=== PATIENT | male | born 1995 | race Caucasian/White ===

== ENCOUNTER 2017-01-23 15:06 | Observation (INO) ==
--- NOTE | 2017-01-23 15:13 | Emergency Department Note ---
Disposition Clinical Impression: Seizure, Alcohol withdrawal Disposition: Admitted As Inpatient Condition: Good General Adult HPI - General Chief complaint: ED General Medical Stated complaint: UNRESPONSIVE Time Seen by Provider: 01/23/17 15:10 - Related Data Home Medications Medication Instructions Recorded Confirmed Ibuprofen [Motrin] 200 mg PO Q4HR PRN 01/23/17 01/23/17 Allergies Allergy/AdvReac Type Severity Reaction Status Date / Time Penicillins [PCN] Allergy Difficulty Verified 01/23/17 16:42 Breathing Course Vital Signs Temperature 96.1 F L 01/23/17 15:10 Pulse Rate 100 01/23/17 15:10 Respiratory Rate 22 01/23/17 15:10 Blood Pressure 136/82 01/23/17 15:10 O2 Sat by Pulse Oximetry 100 01/23/17 15:10 Temperature 96.1 F L 01/23/17 15:10 Pulse Rate 87 01/23/17 17:38 Respiratory Rate 18 01/23/17 17:46 Blood Pressure 126/41 01/23/17 17:46 O2 Sat by Pulse Oximetry 01/23/17 17:38 Oxygen Delivery Oxygen Delivery Room Air Medical Decision Making - Lab Data Result diagrams: 01/23/17 15:37 01/23/17 15:37 Lab Results 01/23/17 01/23/17 01/23/17 Range/Units 15:37 15:37 15:37 WBC 10.0 (4.3-11.1) K/mcL RBC 5.20 (4.19-5.50) M/mcL Hgb 16.6 (12.9-16.9) g/dL Hct 46.9 (37.5-50.1) % MCV 90.2 (83.0-100.0) fL MCH 31.9 (28.0-33.3) pg MCHC 35.4 (31.6-35.5) g/dL RDW 11.9 (11.5-14.5) % Plt Count 185 (140-400) K/mcL MPV 9.9 (9.4-12.4) fL Immature Gran % 0.3 (0-4) % Seg Neutrophils % 74.6 % Lymphocytes % 18.7 % Monocytes % 5.1 % Eosinophils % 0.7 % Basophils % 0.6 % Neutrophils # 7.4 (1.6-8.9) K/mcL Lymphocytes # 1.9 (0.6-4.6) K/mcL Monocytes # 0.5 (0.0-1.3) K/mcL Eosinophils # 0.1 (0.0-0.6) K/mcL Basophils # 0.1 (0.0-0.2) K/mcL Sodium 138 (136-145) mEq/L Potassium 3.1 L (3.5-4.5) mEq/L Chloride 106 (98-109) mEq/L Carbon Dioxide 24 (19-29) mEq/L BUN 7 L (8-26) mg/dL Creatinine 0.93 (0.72-1.25) mg/dL Est GFR ( Amer) > 60 (> 60) Est GFR (Non-Af Amer) > 60 (> 60) BUN/Creatinine Ratio 8 (6-26) Glucose 97 (70-99) mg/dL Calculated Osmolality 284 (280-300) Calcium 9.8 (8.6-10.8) mg/dL Magnesium 2.1 (1.6-2.6) mg/dL Total Bilirubin 0.3 (0.2-1.2) mg/dL AST 27 (5-34) Units/L ALT 21 (0-55) Units/L Alkaline Phosphatase 116 (38-126) Units/L Creatine Kinase 113 (30-200) Units/L Serum Total Protein 8.3 (6.0-8.3) g/dL Albumin 4.7 (3.5-5.0) g/dL Globulin 3.6 H (2.4-3.5) g/dL Albumin/Globulin Ratio 1.3 (1.1-2.2) Urine Color (Yellow) Urine Clarity (Clear) Urine pH (5.0-8.0) pH Units Ur Specific [place] (1.010-1.025) Urine Protein (Neg-Trace) mg/dL Urine Glucose (UA) (Normal) mg/dL Urine Ketones (Negative) mg/dL Urine Blood (Negative) Urine Nitrite (Negative) Urine Bilirubin (Negative) Urine Urobilinogen (Normal) mg/dL Ur Leukocyte Esterase (Negative) Salicylates < 5.0 L (15-30) mg/dL Urine Opiates Screen (Zjuaiw=747) ng/mL Acetaminophen < 1.0 L (10-30) mcg/mL Ur Barbiturates Screen (Ylhyul=285) ng/mL Ur Phencyclidine Scrn (Cutoff=25) ng/mL Ur Amphetamines Screen (Fsnnje=5872) ng/mL U Benzodiazepines Scrn (Wsnizd=764) ng/mL Urine Cocaine Screen (Cutoff= 300) ng/mL U Marijuana (THC) Screen (Cutoff = 50) ng/mL Ethyl Alcohol < 10 (0-10) mg/dL 01/23/17 01/23/17 Range/Units 15:45 15:45 WBC (4.3-11.1) K/mcL RBC (4.19-5.50) M/mcL Hgb (12.9-16.9) g/dL Hct (37.5-50.1) % MCV (83.0-100.0) fL MCH (28.0-33.3) pg MCHC (31.6-35.5) g/dL RDW (11.5-14.5) % Plt Count (140-400) K/mcL MPV (9.4-12.4) fL Immature Gran % (0-4) % Seg Neutrophils % % Lymphocytes % % Monocytes % % Eosinophils % % Basophils % % Neutrophils # (1.6-8.9) K/mcL Lymphocytes # (0.6-4.6) K/mcL Monocytes # (0.0-1.3) K/mcL Eosinophils # (0.0-0.6) K/mcL Basophils # (0.0-0.2) K/mcL Sodium (136-145) mEq/L Potassium (3.5-4.5) mEq/L Chloride (98-109) mEq/L Carbon Dioxide (19-29) mEq/L BUN (8-26) mg/dL Creatinine (0.72-1.25) mg/dL Est GFR ( Amer) (> 60) Est GFR (Non-Af Amer) (> 60) BUN/Creatinine Ratio (6-26) Glucose (70-99) mg/dL Calculated Osmolality (280-300) Calcium (8.6-10.8) mg/dL Magnesium (1.6-2.6) mg/dL Total Bilirubin (0.2-1.2) mg/dL AST (5-34) Units/L ALT (0-55) Units/L Alkaline Phosphatase (38-126) Units/L Creatine Kinase (30-200) Units/L Serum Total Protein (6.0-8.3) g/dL Albumin (3.5-5.0) g/dL Globulin (2.4-3.5) g/dL Albumin/Globulin Ratio (1.1-2.2) Urine Color Yellow (Yellow) Urine Clarity Clear (Clear) Urine pH 8.0 (5.0-8.0) pH Units Ur Specific [place] 1.011 (1.010-1.025) Urine Protein Negative (Neg-Trace) mg/dL Urine Glucose (UA) Normal (Normal) mg/dL Urine Ketones Negative (Negative) mg/dL Urine Blood Negative (Negative) Urine Nitrite Negative (Negative) Urine Bilirubin Negative (Negative) Urine Urobilinogen Normal (Normal) mg/dL Ur Leukocyte Esterase Negative (Negative) Salicylates (15-30) mg/dL Urine Opiates Screen Negative (Hlsciq=872) ng/mL Acetaminophen (10-30) mcg/mL Ur Barbiturates Screen Negative (Ltsvnq=560) ng/mL Ur Phencyclidine Scrn Negative (Cutoff=25) ng/mL Ur Amphetamines Screen Negative (Nmvjkh=6884) ng/mL U Benzodiazepines Scrn Negative (Tvjsey=118) ng/mL Urine Cocaine Screen Negative (Cutoff= 300) ng/mL U Marijuana (THC) Screen Positive H (Cutoff = 50) ng/mL Ethyl Alcohol (0-10) mg/dL Attestation Statement - Attestation Attestation: I examined this patient and my medical decision-making was reviewed with the Resident Physician. I agree with the documented findings, disposition and treatment plan as described except to the extent set forth below. Face to face time provided Patient arrives by EMS from home. He presents with altered mentation. The patient is alert and does answer questions appropriately but slowly and deliberately. He has no focal deficits. Accu-Chek by EMS was appropriate
--- NOTE | 2017-01-23 15:42 | Emergency Department Note ---
Disposition Clinical Impression: Seizure Alcohol withdrawal Qualifiers: Complication of substance-induced condition: with unspecified complication Qualified Code(s): F10.239 - Alcohol dependence with withdrawal, unspecified Disposition: Admitted As Inpatient Condition: Good Time of Disposition: 17:22 General Adult HPI - General Chief complaint: ED General Medical Stated complaint: UNRESPONSIVE Time Seen by Provider: 01/23/17 15:10 Source: patient, EMS Limitations: no limitations Nursing Notes Reviewed: Yes Vital Signs Reviewed: Yes - History of Present Illness HPI Narrative: This is a 21-year-old male with a past medical history of ADHD. He reports to the emergency department via EMS after being found unresponsive. EMS performed a sternal rub and awakened him. At initial presentation, he was altered, and was not answering questions properly. Speaking to his girlfriend, she stated that he had possibly had a seizure. She says that he was having some convulsions as well as contractions. Pain Scale: 0 - Related Data Home Medications Medication Instructions Recorded Confirmed Ibuprofen [Motrin] 200 mg PO Q4HR PRN 01/23/17 01/23/17 Allergies Allergy/AdvReac Type Severity Reaction Status Date / Time Penicillins [PCN] Allergy Difficulty Verified 01/23/17 16:42 Breathing Limitations: ROS unobtainable due to patients medical condition (Altered mental status) Past Medical History - Past Medical History Medical history: Reports: seizures Psychiatric history: Reports: anxiety, depression - Social History Smoking Status: Current every day smoker Smokeless Tobacco Status: No Alcohol use: Reports: rarely Drug use: Reports: marijuana Physical Exam This is a 21-year-old male who is in no apparent distress, but does seem confused and altered - General Limitations: no limitations General appearance: alert - Eye Eye exam: Present: EOMI, other (Pupils dilated but equal and reactive to light) . Absent: scleral icterus, conjunctival injection - ENT ENT exam: TM's normal bilaterally - Neck Neck exam: Present: full ROM, trachea midline - Chest Chest inspection: Present: normal inspection, symmetric chest wall rise - Respiratory Respiratory exam: Present: normal lung sounds bilaterally. Absent: respiratory distress, wheezes, stridor - Cardiovascular Cardiovascular exam: Present: regular rate, normal rhythm, normal heart sounds - Abdominal Exam Abdominal exam: Present: soft, Non-Tender. Absent: distention, guarding, rebound, rigidity - Extremities Exam Extremities exam: Present: normal capillary refill. Absent: tenderness, joint swelling, calf tenderness - Back Exam Back exam: Present: normal inspection, full ROM. Absent: tenderness - Psychiatric Psychiatric exam: Absent: agitated, anxious - Skin Skin exam: Present: warm, dry, intact Course Course Narrative: This is a 21-year-old male who presents to the emergency department via EMS after being found unresponsive. His girlfriend states that she thought he had seizure-like activity at home. Upon presentation, he appeared altered, he responded appropriately to questions, but he was very sluggish in answering them. Our initial major concerns were intracranial hemorrhage, seizure, drug overdose , acute infection. We performed a CT of the head, obtain a CBC, CMP, APAP, salicylate level, alcohol level, magnesium level. - Reevaluation(s) Reevaluation #1: He appears awake and more alert at the moment. His unresponsiveness appears to be more like a postictal phase. He states that up until a week ago he was drinking over a 30 pack of natural light per day. He also states he was doing 4 -8 shots of any type of liquor he can get his hands on. After after quitting drinking and 30 pack per day, he continued taking the same amount of shots until [address] came back negative as well as his chest x-ray. His EKG was mostly unchanged from his previous one. His urine drug screen only came back positive for THC. His potassium was 3.1, and I am correcting it with 40 mEq of oral potassium. At this time, I am most concerned about this patient having an acute alcohol withdrawal. I think it is in this patient's best interest to stay for observation. I will consult neurology as well as the hospitalist service to admit him. Time: 16:15 Reevaluation #2: I spoke to the neurologist Dr. Almonte on the phone, and he agrees to perform a MRI and EEG on him tomorrow if he is admitted. Time: 17:00 Reevaluation #3: I spoke on the phone with the hospitalist and he agreed to admit him. The patient seems more agitated at this time. I will give him 2 mg of Valium. Time: 17:35 Vital Signs Temperature 96.1 F L 01/23/17 15:10 Pulse Rate 100 01/23/17 15:10 Respiratory Rate 22 01/23/17 15:10 Blood Pressure 136/82 01/23/17 15:10 O2 Sat by Pulse Oximetry 100 01/23/17 15:10 Temperature 96.1 F L 01/23/17 15:10 Pulse Rate 79 01/23/17 16:35 Respiratory Rate 16 01/23/17 16:35 Blood Pressure 114/58 01/23/17 16:35 O2 Sat by Pulse Oximetry 97 01/23/17 16:35 Oxygen Delivery Oxygen Delivery Room Air Medical Decision Making - MDM Narrative Medical decision making narrative: Head CT 01/23/17 15:12 IMPRESSION: Normal CT of the brain. D/ / Eder Garcia MD / Eder Garcia MD Interpreting Provider: Eder Garcia MD Chest X-Ray 01/23/17 15:15 IMPRESSION: 1. No acute radiographic finding in the chest. D/ / Jimbo Bazan MD / Jimbo Bazan MD Interpreting Provider: Jimbo Bazan MD Vital Signs Temperature 96.1 F L 01/23/17 15:10 Pulse Rate 100 01/23/17 15:10 Respiratory Rate 22 01/23/17 15:10 Blood Pressure 136/82 01/23/17 15:10 O2 Sat by Pulse Oximetry 100 01/23/17 15:10 Temperature 96.1 F L 01/23/17 15:10 Pulse Rate 79 01/23/17 16:35 Respiratory Rate 16 01/23/17 16:35 Blood Pressure 114/58 01/23/17 16:35 O2 Sat by Pulse Oximetry 97 01/23/17 16:35 Oxygen Delivery Oxygen Delivery Room Air - Medical Records Medical records reviewed: Yes I reviewed the patient's medical records. - Lab Data Lab results reviewed: Yes I reviewed the patient's lab results. Result diagrams: 01/23/17 15:37 01/23/17 15:37 Lab Results 01/23/17 01/23/17 01/23/17 Range/Units 15:37 15:37 15:37 WBC 10.0 (4.3-11.1) K/mcL RBC 5.20 (4.19-5.50) M/mcL Hgb 16.6 (12.9-16.9) g/dL Hct 46.9 (37.5-50.1) % MCV 90.2 (83.0-100.0) fL MCH 31.9 (28.0-33.3) pg MCHC 35.4 (31.6-35.5) g/dL RDW 11.9 (11.5-14.5) % Plt Count 185 (140-400) K/mcL MPV 9.9 (9.4-12.4) fL Immature Gran % 0.3 (0-4) % Seg Neutrophils % 74.6 % Lymphocytes % 18.7 % Monocytes % 5.1 % Eosinophils % 0.7 % Basophils % 0.6 % Neutrophils # 7.4 (1.6-8.9) K/mcL Lymphocytes # 1.9 (0.6-4.6) K/mcL Monocytes # 0.5 (0.0-1.3) K/mcL Eosinophils # 0.1 (0.0-0.6) K/mcL Basophils # 0.1 (0.0-0.2) K/mcL Sodium 138 (136-145) mEq/L Potassium 3.1 L (3.5-4.5) mEq/L Chloride 106 (98-109) mEq/L Carbon Dioxide 24 (19-29) mEq/L BUN 7 L (8-26) mg/dL Creatinine 0.93 (0.72-1.25) mg/dL Est GFR ( Amer) > 60 (> 60) Est GFR (Non-Af Amer) > 60 (> 60) BUN/Creatinine Ratio 8 (6-26) Glucose 97 (70-99) mg/dL Calculated Osmolality 284 (280-300) Calcium 9.8 (8.6-10.8) mg/dL Magnesium 2.1 (1.6-2.6) mg/dL Total Bilirubin 0.3 (0.2-1.2) mg/dL AST 27 (5-34) Units/L ALT 21 (0-55) Units/L Alkaline Phosphatase 116 (38-126) Units/L Creatine Kinase 113 (30-200) Units/L Serum Total Protein 8.3 (6.0-8.3) g/dL Albumin 4.7 (3.5-5.0) g/dL Globulin 3.6 H (2.4-3.5) g/dL Albumin/Globulin Ratio 1.3 (1.1-2.2) Urine Color (Yellow) Urine Clarity (Clear) Urine pH (5.0-8.0) pH Units Ur Specific [place] (1.010-1.025) Urine Protein (Neg-Trace) mg/dL Urine Glucose (UA) (Normal) mg/dL Urine Ketones (Negative) mg/dL Urine Blood (Negative) Urine Nitrite (Negative) Urine Bilirubin (Negative) Urine Urobilinogen (Normal) mg/dL Ur Leukocyte Esterase (Negative) Salicylates < 5.0 L (15-30) mg/dL Urine Opiates Screen (Dcugel=943) ng/mL Acetaminophen < 1.0 L (10-30) mcg/mL Ur Barbiturates Screen (Ipybli=416) ng/mL Ur Phencyclidine Scrn (Cutoff=25) ng/mL Ur Amphetamines Screen (Pwydch=2668) ng/mL U Benzodiazepines Scrn (Fckeai=881) ng/mL Urine Cocaine Screen (Cutoff= 300) ng/mL U Marijuana (THC) Screen (Cutoff = 50) ng/mL Ethyl Alcohol < 10 (0-10) mg/dL 01/23/17 01/23/17 Range/Units 15:45 15:45 WBC (4.3-11.1) K/mcL RBC (4.19-5.50) M/mcL Hgb (12.9-16.9) g/dL Hct (37.5-50.1) % MCV (83.0-100.0) fL MCH (28.0-33.3) pg MCHC (31.6-35.5) g/dL RDW (11.5-14.5) % Plt Count (140-400) K/mcL MPV (9.4-12.4) fL Immature Gran % (0-4) % Seg Neutrophils % % Lymphocytes % % Monocytes % % Eosinophils % % Basophils % % Neutrophils # (1.6-8.9) K/mcL Lymphocytes # (0.6-4.6) K/mcL Monocytes # (0.0-1.3) K/mcL Eosinophils # (0.0-0.6) K/mcL Basophils # (0.0-0.2) K/mcL Sodium (136-145) mEq/L Potassium (3.5-4.5) mEq/L Chloride (98-109) mEq/L Carbon Dioxide (19-29) mEq/L BUN (8-26) mg/dL Creatinine (0.72-1.25) mg/dL Est GFR ( Amer) (> 60) Est GFR (Non-Af Amer) (> 60) BUN/Creatinine Ratio (6-26) Glucose (70-99) mg/dL Calculated Osmolality (280-300) Calcium (8.6-10.8) mg/dL Magnesium (1.6-2.6) mg/dL Total Bilirubin (0.2-1.2) mg/dL AST (5-34) Units/L ALT (0-55) Units/L Alkaline Phosphatase (38-126) Units/L Creatine Kinase (30-200) Units/L Serum Total Protein (6.0-8.3) g/dL Albumin (3.5-5.0) g/dL Globulin (2.4-3.5) g/dL Albumin/Globulin Ratio (1.1-2.2) Urine Color Yellow (Yellow) Urine Clarity Clear (Clear) Urine pH 8.0 (5.0-8.0) pH Units Ur Specific [place] 1.011 (1.010-1.025) Urine Protein Negative (Neg-Trace) mg/dL Urine Glucose (UA) Normal (Normal) mg/dL Urine Ketones Negative (Negative) mg/dL Urine Blood Negative (Negative) Urine Nitrite Negative (Negative) Urine Bilirubin Negative (Negative) Urine Urobilinogen Normal (Normal) mg/dL Ur Leukocyte Esterase Negative (Negative) Salicylates (15-30) mg/dL Urine Opiates Screen Negative (Xoqmrc=330) ng/mL Acetaminophen (10-30) mcg/mL Ur Barbiturates Screen Negative (Fpweod=773) ng/mL Ur Phencyclidine Scrn Negative (Cutoff=25) ng/mL Ur Amphetamines Screen Negative (Btovof=0575) ng/mL U Benzodiazepines Scrn Negative (Abcrnj=247) ng/mL Urine Cocaine Screen Negative (Cutoff= 300) ng/mL U Marijuana (THC) Screen Positive H (Cutoff = 50) ng/mL Ethyl Alcohol (0-10) mg/dL - Radiology Data Radiology results reviewed: Yes I reviewed the patient's radiology results. - EKG Data EKG #1 EKG attestation: Yes I reviewed and interpreted this EKG. EKG results narrative: 01/23/2017 15:08 Ventricular rate 80 bpm, TX interval 138 ms, QRS jain 94 6, QT 366, QTC 411 ms, normal axis. Sinus rhythm with a ventricular rate of 80 beats per minute. RSR prime in V2. This is new from his previous EKG from 04/18/2014
[2017-01-23 15:44] LABS: Basophils # 0.1 K/mcL (0.0-0.2); Basophils % 0.6 %; Eosinophils # 0.1 K/mcL (0.0-0.6); Eosinophils % 0.7 %; Hematocrit 46.9 % (37.5-50.1); Hemoglobin 16.6 g/dL (12.9-16.9); Immature Granulocytes % 0.3 % (0-4); Lymphocytes # 1.9 K/mcL (0.6-4.6); Lymphocytes % 18.7 %; Mean Corpuscular HGB Conc 35.4 g/dL (31.6-35.5); Mean Corpuscular Hemoglobin 31.9 pg (28.0-33.3); Mean Corpuscular Volume 90.2 fL (83.0-100.0); Mean Platelet Volume 9.9 fL (9.4-12.4); Monocytes # 0.5 K/mcL (0.0-1.3); Monocytes % 5.1 %; Neutrophils # 7.4 K/mcL (1.6-8.9); Platelet Count 185 K/mcL (140-400); Red Cell Distribution Width 11.9 % (11.5-14.5); Segmented Neutrophils % 74.6 %
[2017-01-23 15:53] LABS: Bilirubin,Urine Negative (Negative); Blood,Urine Negative (Negative); Clarity,Urine Clear (Clear); Color,Urine Yellow (Yellow); Glucose,Urine (UA) Normal (Normal); Ketones,Urine Negative (Negative); Leukocyte Esterase,Urine Negative (Negative); Nitrite,Urine Negative (Negative); Protein,Urine Negative (Neg-Trace); Specific Gravity,Urine 1.011 (1.010-1.025); Urobilinogen,Urine Normal (Normal)
[2017-01-23 15:58] LABS: Amphetamine Screen,Urine Negative ng/mL (Cutoff=1000); Barbiturate Screen,Urine Negative ng/mL (Cutoff=200); Benzodiazepines Screen,Urine Negative ng/mL (Cutoff=200); Cannabinoid Screen,Urine Positive ng/mL (Cutoff = 50); Cocaine Screen,Urine Negative ng/mL (Cutoff= 300); Opiate Screen,Urine Negative ng/mL (Cutoff=300); Phencyclidine Screen,Urine Negative ng/mL (Cutoff=25)
[2017-01-23 15:58] LABS: Alanine Aminotransferase 21 Units/L (0-55); Albumin 4.7 g/dL (3.5-5.0); Albumin/Globulin Ratio 1.3 (1.1-2.2); Alkaline Phosphatase 116 Units/L (38-126); Aspartate Amino Transferase 27 Units/L (5-34); BUN/Creatinine Ratio 8 (6-26); Bilirubin,Total 0.3 mg/dL (0.2-1.2); Blood Urea Nitrogen 7 mg/dL (8-26); Calcium 9.8 mg/dL (8.6-10.8); Carbon Dioxide 24 mEq/L (19-29); Chloride 106 mEq/L (98-109); Creatine Kinase 113 Units/L (30-200); Globulin 3.6 g/dL (2.4-3.5); Glucose 97 mg/dL (70-99); Osmolality,Calculated 284 (280-300); Potassium 3.1 mEq/L (3.5-4.5); Sodium 138 mEq/L (136-145); Total Protein 8.3 g/dL (6.0-8.3); eGFR For African Americans > 60 (> 60); eGFR For Non-African Americans > 60 (> 60)
[2017-01-23 15:59] LABS: Acetaminophen < 1.0 mcg/mL (10-30); Salicylate < 5.0 mg/dL (15-30)
[2017-01-23 16:13] LABS: Magnesium 2.1 mg/dL (1.6-2.6)
[2017-01-23] MEDS ORDERED: diazePAM 2 MG TABLET PO STA (17:24)
[2017-01-23] MEDS ORDERED: *HR* LORazepam 2 MG/ML VIAL IVP PRN ×3 (17:43)
[2017-01-23] MEDS ORDERED: Ondansetron 4 MG/2 ML VIAL IVP PRN (17:45)
[2017-01-23] MEDS ORDERED: Naloxone 0.4 MG/ML INJ IVP PRN (17:45)
[2017-01-23] MEDS ORDERED: 0.9 % Sodium Chloride 1,000 ML IVC SCH (17:45)
[2017-01-23] MEDS ORDERED: Acetaminophen 325 MG TABLET PO PRN (17:45)
--- NOTE | 2017-01-23 17:50 | Internal Med History&Physical ---
Date of Encounter: 01/23/17 Time of Encounter: 17:47 Assessment and Plan (1) Alcohol withdrawal Current visit: Yes Status: Acute Possible seizure likely secondary to alcohol withdrawal Start Ativan standing dose, order IV Ativan per CIWA scale Fall, seizure and aspiration precautions Neurology consulted by ER, EEG recommended Famotidine for GI prophylaxis and early ambulation for DVT prophylaxis. Admitted for observation. Full code. Time spent on this admission 40 minutes. High risk for recurrent seizures Qualifiers: Complication of substance-induced condition: with unspecified complication Qualified Code(s): F10.239 - Alcohol dependence with withdrawal, unspecified (2) Seizure Current visit: Yes Status: Acute (3) Tobacco use Current visit: Yes Status: Acute Smoking cessation counseling, nicotine patch offered (4) Hypokalemia Current visit: Yes Status: Acute Replete as needed Internal Medicine - H&P: HPI Chief complaint: Seizures, alcohol abuse Admitted From: Emergency Dept History of present illness: Mr. Franco is a 21 year old male with a past medical history of ADHD, tobacco use, alcohol use, came to the emergency room brought by the EMS after he became unresponsive at home. According to his girlfriend the patient was at home and all of a sudden he became unresponsive and had some twitching-like movements, did not present with any incontinence and was out for about 45 minutes in total including the time that he was admitted to the ER. According to the ER physician the patient has been drinking beer in large amounts up until 2 weeks ago and after that he started drinking shots of hard liquor up until 2 days ago. Urine tox screen was positive for marijuana. Potassium is 3.1 heart rate 100 chest x-ray and CT scan of the head were unremarkable. Patient has been complaining of some chest tightness on and off. He does not remember much of what happened. Complaining of some soreness in his arms and chest Past Med Surg Social Fam HX - Past Medical History Medical history: seizures, other (Alcohol abuse, ADHD) Psychiatric history: anxiety, depression - Past Surgical History Surgical History: no surgical history - Social History Smoking Status: Current every day smoker Packs per day: One pack per day Smokeless Tobacco Status: No Alcohol use: heavy Drug use: marijuana - Additional Family History Additional family history: Denies family history Internal Medicine - H&P: Meds Ibuprofen [Motrin] 200 mg PO Q4HR PRN 01/23/17 [History] Allergies Penicillins [PCN] Allergy (Verified 01/23/17 16:42) Difficulty Breathing PATIENT WAS TOLD HE HAD ISSUES BREATHING, AND "ALMOST " WHEN HE WAS 6 YEARS OLD All Systems PM: A 10-system review of systems was performed and is negative for pertinent findings except as documented above in the HPI. Review of systems: Feels weak, other systems out of a 10 reviewed were negative - Constitutional Vitals: Temp Pulse Resp BP Pulse Ox 96.1 F L 87 16 123/78 100 01/23/17 15:10 01/23/17 17:38 01/23/17 16:35 01/23/17 17:38 01/23/17 17:38 General appearance: Present: A&O X 3 - Head Head exam: Present: atraumatic, normocephalic - Eye Eye exam: Present: PERRL, conjuntiva pink, sclera anicteric Pupils: Present: PERRL - Neck Neck exam general surgery: Present: supple, trachea midline. Absent: lymphadenopathy - Respiratory Respiratory exam: Present: CTAB. Absent: accessory muscle use, rales, rhonchi, wheezes - Cardiovascular Cardiovascular exam: Present: RRR, +S1, +S2. Absent: diastolic murmur, gallop, rubs, systolic murmur - GI/Abdominal GI/Abdominal exam: Present: normal bowel sounds, soft, no peritoneal signs. Absent: distended, tenderness - Extremities Exam Extremities exam: Present: warm, radial pulses palpable and symetrical. Absent : calf tenderness, cyanotic, pedal edema - Neurological Exam Neurological exam: Present: CN II-XII intact, oriented X3, no focal deficits. Absent: pronater drift, facial droop, speech deficit - Skin Skin exam: Present: dry, intact Internal Med - H&P Results - Labs CBC & Chem 7: 01/23/17 15:37 01/23/17 15:37
[2017-01-23] MEDS: Thiamine (B-1) 100 MG TABLET PO SCH (18:50)
[2017-01-23] MEDS: Folic Acid 1 MG TABLET PO SCH (18:50)
[2017-01-23] MEDS: Nicotine 21 MG PATCH.TD24 TD SCH (18:51)
[2017-01-23] MEDS: *HR* LORazepam 1 MG TABLET PO SCH ×2 (18:51→22:49)
[2017-01-23] MEDS: Famotidine 20 MG TABLET PO SCH (22:50)
[2017-01-24 06:45] LABS: BUN/Creatinine Ratio 11 (6-26); Blood Urea Nitrogen 11 mg/dL (8-26); Calcium 8.9 mg/dL (8.6-10.8); Carbon Dioxide 26 mEq/L (19-29); Chloride 112 mEq/L (98-109); Glucose 87 mg/dL (70-99); Osmolality,Calculated 291 (280-300); Sodium 141 mEq/L (136-145); eGFR For African Americans > 60 (> 60); eGFR For Non-African Americans > 60 (> 60)
[2017-01-24] MEDS: Folic Acid 1 MG TABLET PO SCH (08:08)
[2017-01-24] MEDS: Famotidine 20 MG TABLET PO SCH (08:08)
[2017-01-24] MEDS: Nicotine 21 MG PATCH.TD24 TD SCH (08:08)
[2017-01-24] MEDS: *HR* LORazepam 1 MG TABLET PO SCH ×2 (08:08→13:21)
[2017-01-24] MEDS: Thiamine (B-1) 100 MG TABLET PO SCH (08:08)
[2017-01-24 11:31] VITALS: BP 102/60
--- NOTE | 2017-01-24 11:55 | EEG/EMG/Oth Biometrics Report ---
EEG Procedure Report Date of procedure: 01/24/17 EEG Procedure: Routine EEG Procedure Note: Medication: no anticonvulsants listed. Report: This EEG was acquired with standard international 10-20 electrode placement system with EKG recording. The Background activity during this EEG was characterized by the presence of posterior dominant alpha and beta rhythm with best frequency up to 14 Hz. The background activity was reactive to eye openings. Sleep stages were characterized by the presence of background fragmentation, vertex waves, K-complexes and sleep spindles. There are no electrographic seizures identified during this tracing. There are no epileptiform discharges and focal slowing noted during this recording. Excessive diffuse beta activity noted during the study. Photic stimulation and HV produced no abnormalities. EKG tracing showed no significant cardiac dysarrhythmia. Impression: This is a normal awake and asleep EEG. Presence of excessive beta activity can be the result of medication effects from benzodiazepam or phenobarbital. Clinical Correlation: Normal EEGs, however, do not exclude epilepsy. Clinical correlation required.
--- NOTE | 2017-01-24 13:04 | Neurology - Consult Note ---
Date of Encounter: 01/24/17 Time of Encounter: 12:59 Assessment and Plan (1) Seizure Current Visit: Yes Status: Acute first time witnessed seizure likely activity, may be complicated by alcohol use or withdrawal but accurate assessment of his alcohol usage is not available. patient has nonfocal neurological examination, routine EEG showed normal awake and asleep EEG. CT of head normal. Will not initiate antiepileptic therapy. Alcohol cessation advised. Patient can be discharged home. Follow up with PCP History of Present Illness Chief complaint: seizure HPI: Mr. Franco is a 21 year old male with no significant PMH except alcohol drinking who developed witnessed seizure like activity. Interviewed in the presence of his girlfriend. Patient also has history of alcolol abuse in the past but girlfriend reports and he has not been drinking heavily though, probably few shots in the last 3-4 days. patient drinks lots of coffee and he does not sleep well. Denies any warning prior to the seizure. Girlfriend described his seizure as his arms flexed at the belly, he was hyperventilating and probably had few jerks but no convulsions, no urinary incontinence and no tongue biting, During the episode his mental status was altered but he probably did not totally lose his consciousness. No prior history of seizures. CT of head normal. EEG also completed and was read as normal with diffuse beta activity. Urine drug screen was positive for Marijuana Past Med Surg Social Fam HX - Past Medical History Medical history: seizures, other Psychiatric history: anxiety, depression - Past Surgical History Surgical History: no surgical history - Social History Smoking Status: Current every day smoker Packs per day: 0.5 Smokeless Tobacco Status: No Alcohol use: heavy Drug use: marijuana - Family History Mother History Unknown: Yes Living Status: Still Living Father Living Status: Cause of : suicide Medications and Allergies Ibuprofen [Motrin] 200 mg PO Q4HR PRN 01/23/17 [History] Allergies Penicillins [PCN] Allergy (Verified 01/23/17 16:42) Difficulty Breathing PATIENT WAS TOLD HE HAD ISSUES BREATHING, AND "ALMOST " WHEN HE WAS 6 YEARS OLD All Systems: A 10-system review of systems was performed and is negative for pertinent findings except as documented above in the HPI. Physical Examination - Vital Signs Vital Signs: Initial Vital Signs Temp Pulse Resp BP Pulse Ox 96.1 F L 100 22 136/82 100 01/23/17 15:10 01/23/17 15:10 01/23/17 15:10 01/23/17 15:10 01/23/17 15:10 - Constitutional General appearance: comfortable - Neurologic Detailed motor examination: full strength in all major muscle groups Motor examination - right side: 11/02: deltoids, biceps, triceps, wrist flexion, wrist extension, circulation manager, hip flexors, tibialis Anterior, quadriceps, toe extension (EHL), plantarflexion Motor examination - left side: 11/02: deltoids, biceps, triceps, wrist flexion, wrist extension, hip flexors, circulation manager, quadriceps, tibialis Anterior, toe extension (EHL), plantarflexion Mental Status Examination: awake, alert, oriented to person, oriented to place, oriented to time, follows commands appropriately, answers questions appropriately, no agnosia, no aphasia, no aproxia Cranial nerve examination: PERRL, EOMI, visual machado intact, corneal reflexes brisk symmetrically, sensory to face intact, mastication intact, no facial asymmetry is present, no dysarthria, hearing is intact symmetrically, soft palate elevates bilaterally upon phonation, gag reflex intact, flexes SCM and trapezius muscles symmetrically with full power, tongue protrudes midline, no atrophy or facial fasiculations present Cerebellar examination: no dysmetria, performs finger to nose and heel to gordon symmetrically without ataxia, no gait ataxia, no truncal ataxia, no difficulty with rapid alternating movements Results - Laboratory Findings CBC and BMP: 01/23/17 15:37 01/24/17 05:54 Abnormal lab findings: Abnormal lab results Potassium 5.0 mEq/L (3.5-4.5) H D 01/24/17 05:54 Chloride 112 mEq/L (98-109) H 01/24/17 05:54 Globulin 3.6 g/dL (2.4-3.5) H 01/23/17 15:37 Salicylates < 5.0 mg/dL (15-30) L 01/23/17 15:37 Acetaminophen < 1.0 mcg/mL (10-30) L 01/23/17 15:37 U Marijuana (THC) Screen Positive ng/mL (Cutoff = 50) H 01/23/17 15:45 Consult Discharge Plan - Plan Referrals: NO,PCP [Primary Care Provider] -
--- NOTE | 2017-01-24 14:05 | Electrocardiograph Report ---
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
--- NOTE | 2017-01-24 14:30 | Electrocardiograph Report ---
[place] [id number] Test Date: 2017-01-24 Pat Name: Gabbi Franco Department: 113 Room: 3B Gender: M [employer]: : 1995 Requested By: Angelic Ojeda Order Number: [id number] Reading MD: Lemuel Gonzalez MD Measurements Intervals [place] Rate: 53 P: 61 [place]: 128 QRS: 76 QRSD: 75 T: 65 QT: 419 QTc: 401 Interpretive Statements SINUS BRADYCARDIA WITH SINUS ARRHYTHMIA ST ELEVATION, PROBABLY EARLY REPOLARIZATION Electronically Signed On 01-24-2017 14:28:12 EDT by Lemuel Gonzalez MD
--- NOTE | 2017-01-24 15:26 | Discharge Summary ---
Date of Encounter: 01/24/17 Time of Encounter: 14:30 - Discharge Diagnosis (1) Seizure Priority: Primary Status: Acute Comments: No further seizure-like activity noted while admitted. No symptoms of alcohol withdrawal noted while admitted. Patient was seen and evaluated by neurology who cleared him for outpatient follow-up with his primary care provider. EEG unremarkable. Head CT negative. No indication for antiepileptic therapy at this time. (2) Alcohol withdrawal Priority: Primary Status: Resolved Comments: Patient did not have any signs of acute alcohol withdrawal during this admission. Patient stated he is not interested in stopping drinking at this time. Qualifiers: Complication of substance-induced condition: with unspecified complication Qualified Code(s): F10.239 - Alcohol dependence with withdrawal, unspecified (3) Hypokalemia Priority: Primary Status: Resolved (4) Tobacco use Priority: Secondary Status: Chronic Comments: Declined smoking cessation counseling (5) Marijuana abuse Priority: Secondary Status: Chronic - Discharge Medications Home Medications: Ibuprofen [Motrin] 200 mg PO Q4HR PRN 01/23/17 [History] Allergies/Adverse Reactions: Allergies Penicillins [PCN] Allergy (Verified 01/23/17 16:42) Difficulty Breathing PATIENT WAS TOLD HE HAD ISSUES BREATHING, AND "ALMOST " WHEN HE WAS 6 YEARS OLD Procedures/tests Complete & Pending: Procedures Performed prior 72 hours Category Date Time Status ECG 12 lead ECG [ECG] Routine Y 01/24/17 01:04 Completed Date of admission: 01/23/17 16:36 Primary care physician: PCP NO Consults: 01/23/17 17:41 Consult to Neurology [CONS] Routine Consulting Provider: [facility] Reason for Consult: possible seizures, called by ER Call Completed: Yes 01/24/17 10:19 Consult to Interpret Exam [CONS] Routine Consulting Provider: Clarisse Glass Consult to Interpret Exam: Interpret EEG Discharging clinician: Angelic Ojeda Anticipated date of discharge: 01/24/17 - Patient Status Disposition: Home, Self-Care Condition: Good Functional capacity at discharge: independent ambulation Overall status at discharge: patient is back to baseline - Discharge Instructions Follow Up With: NO,PCP [Primary Care Provider] - Additional Instructions: See new primary care provider soon as possible - Diet and Activity Activity: increase activity as tolerated Diet: regular diet Hospital course: Mr. Franco is a 21 year old male with past medical history of ADHD, tobacco abuse, heavy alcohol abuse, marijuana abuse. Patient presented to the emergency department via EMS after he became unresponsive at home. According to his girlfriend, the patient was at home when all of a sudden, he became unresponsive and had some twitching-like movements. No incontinence. He was reportedly off approximately 45 minutes including his arrival to the emergency department. According to the ER physician, patient had been drinking beer and large amounts up until proximally 2 weeks ago and after that he started to drink shots of hard liquor up until approximately 2 days prior to presentation. Urine tox screen in the emergency department positive for marijuana. Mild hypokalemia noted. Head CT negative. Chest x-ray negative. Patient was admitted to the hospitalist service for further evaluation and management. Neurology was brought on board. EEG was unremarkable. Neurology cleared him for outpatient follow-up. Patient remained alert and oriented 3 with no further seizure-like activity while admitted. No indication to initiate antiepileptic seizure medications at this time. Patient was not interested in smoking cessation, or in counseling regarding alcohol use and marijuana abuse. He did not have any acute alcohol withdrawal symptoms during this admission. He was discharged home in stable condition with close outpatient follow-up recommended. ITS Impressions Head CT 01/23/17 15:12 IMPRESSION: Normal CT of the brain. D/ / Eder Garcia MD / Eder Garcia MD Interpreting Provider: Eder Garcia MD Chest X-Ray 01/23/17 15:15 IMPRESSION: 1. No acute radiographic finding in the chest. D/ / Jimbo Bazan MD / Jimbo Bazan MD Interpreting Provider: Jimbo Bazan MD impression: This is a normal awake and asleep EEG. Presence of extensive beta activity can be the result of medication effects from benzo diazepam or phenobarbital. Clinical correlation: Normal EEGs, however, did not exclude epilepsy. Clinical correlation required. - Time Spent with Patient Total time spent providing and/or coordinating discharge services: - Constitutional Vitals: Temp Pulse Resp BP Pulse Ox 98.1 F 54 16 102/60 97 01/24/17 11:19 01/24/17 11:19 01/24/17 11:19 01/24/17 11:19 01/24/17 11:19 General appearance: Present: A&O X 3, pleasant, no acute distress, answers questions appropriately - Head Head exam: Present: atraumatic, normocephalic - Eye Eye exam: Present: PERRL, conjuntiva pink, sclera anicteric Pupils: Present: PERRL - Neck Neck exam general surgery: Present: supple, trachea midline. Absent: lymphadenopathy - Respiratory Respiratory exam: Present: decreased breath sounds. Absent: accessory muscle use, rales, respiratory distress, rhonchi, wheezes - Cardiovascular Cardiovascular exam: Present: RRR, +S1, +S2. Absent: diastolic murmur, gallop, rubs, systolic murmur - GI/Abdominal GI/Abdominal exam: Present: normal bowel sounds, soft, no peritoneal signs. Absent: distended, tenderness - Extremities Exam Extremities exam: Present: warm, radial pulses palpable and symetrical. Absent : calf tenderness, cyanotic, pedal edema - Neurological Exam Neurological exam: Present: alert, CN II-XII intact, normal gait, oriented X3, no focal deficits, strengths equal and symetr throughout. Absent: pronater drift, facial droop, speech deficit - Skin Skin exam: Present: dry, intact, normal color, warm
== END 2017-01-24 15:56 | disposition home or self-care (01) ==
LOC: 3BNU 15:06 → EMEROO 15:06 → 3BNU 18:01
PROVIDERS: ADMIT Internal Medicine; ATTEND Nurse Practitioner Family